=== PATIENT | female | born 1960 | race Caucasian/White ===

== ENCOUNTER 2018-12-04 06:49 | Emergency (ER) | payer OTHER ==
[2018-12-04 07:27] VITALS: TEMP 97.7; BMI 24.7
[2018-12-04] MEDS ORDERED: ONDANSETRON 4 MG/2 ML VIAL ONE ×2 (08:19→08:29)
[2018-12-04 08:20] LABS: BASO % 0.5 % (0-2.0); EOS % 1.1 % (0-4.5); HEMATOCRIT 40.7 % (32.4-45.2); HEMOGLOBIN 13.8 GM/dL (10.7-15.3); LYMPH % 20.7 % (8-40); MCH 33.7 pg (25.7-33.7); MEAN CELL VOLUME 99.2 fl (80-96); MEAN PLT VOLUME 9.6 fl (7.5-11.1); MONO % 7.2 % (3.8-10.2); NEUT % 70.5 % (42.8-82.8); PLATELET COUNT 156 K/MM3 (134-434); RDW 12.6 % (11.6-15.6); WHITE BLOOD COUNT 4.1 K/mm3 (4.0-10.0)
[2018-12-04] MEDS ORDERED: ONDANSETRON 4 MG/2 ML VIAL IVPUSH ONE (08:20)
[2018-12-04 08:21] LABS: INR 0.92 (0.83-1.09); PROTHROMBIN TIME (PATIENT) 10.8 SEC (9.7-13.0)
--- NOTE | 2018-12-04 08:33 | PDOC ---
Documentation entered by Karen Baker SCRIBE, acting as scribe for Gera Dailey MD. Gera Dailey MD: This documentation has been prepared by the scribe, Karen Baker SCRIBE, under my direction and personally reviewed by me in its entirety. I confirm that the documentation accurately reflects all work, treatment, procedures, and medical decision making performed by me. History of Present Illness - General Chief Complaint: CVA/TIA Stated Complaint: DIZZY Time Seen by Provider: 12/04/18 07:26 History Source: Patient Exam Limitations: Language Barrier - History of Present Illness Initial Comments: 12/04/18 09:30 The patient is a 54-year-old female, with a past medical history of DM, GERD, who presents to the ED with dizziness that began this morning. The patient states that she got up from bed and felt dizzy. She was trying to hold on to the surrounding furniture to balance herself. She denies any loss of consciousness or head trauma. She denies room spinning sensation and reports that she feels unsteady on her feet. She also reports numbness in B/L hands, worse on the LT side. The patient denies any fever, chills, nausea, vomiting, diarrhea, constipation or abdominal pain. Denies any chest pain, palpitations, or shortness of breath. Allergies: ciprofloxacin, ciprofloxacin HCl, ranitidine HCl. Surgical History: None reported. Social History: None reported PCP: Dr. Cassius Myers NIH Stroke Scale - Last Known Well Date/Time & Onset Date Last Known Well: 12/04/18 Time Last Known Well: 06:00 - Initial Evaluation Level of consciousness: Alert Ask patient the month and their age: Answers both correctly Ask patient to open & close eyes; make fist and let go: Obeys both correctly Best gaze (horizontal eye movement): Normal Visual field testing: No visual field loss Facial paresis (Show teeth/raise eyebrows/close eyes tight): Normal symmetrical movement Motor Function: Left Arm: Normal Motor Function: Right Arm: Normal (extends arm 90 (or 45) degrees for 10 seconds without drift Motor Function: Left Leg: Normal (extends leg 30 degrees for 5 seconds without drift) Motor Function: Right Leg: Normal (extends leg 30 degrees for 5 seconds without drift) Limb Ataxia: Present in one limb Sensory(Use pinprick test arms,legs,trunk,face/side to side): Normal Best language (Describe picture, name items, read sentences): No Aphasia Dysarthria (read several words): Normal articulation Extinction and Inattention: No abnormality - Total Score NIH Stroke Scale Score: 1 Past History - Past Medical History Allergies/Adverse Reactions: Allergies Allergy/AdvReac Type Severity Reaction Status Date / Time ciprofloxacin [From Cipro] Allergy Rash Verified 12/04/18 07:21 ciprofloxacin HCl Allergy Rash Verified 12/04/18 07:21 [From Cipro] ranitidine HCl [From Zantac] Allergy Rash Verified 12/04/18 07:21 Home Medications: Ambulatory Orders Calcium Carbonate/Vitamin D3 [Calcium 500 + D Tablet] 1 tab PO DAILY 11/10/13 Omeprazole [Prilosec] 20 mg PO DAILY 09/18/14 Acetaminophen W/ Codeine #3 [Tylenol # 3 -] 1 tab PO Q6H #20 tablet 10/12/14 COPD: No Diabetes: Yes (gestational) GI Disorders: Yes (reflux) - Immunization History Immunization Up to Date: Yes - Suicide/Smoking/Psychosocial Hx Smoking History: Never smoked Have you smoked in the past 12 months: No Information on smoking cessation initiated: No Hx Alcohol Use: No Drug/Substance Use Hx: No Substance Use Type: Alcohol Review of Systems - Review of Systems Comments:: 12/04/18 09:02 REVIEW OF SYSTEMS CONSTITUTIONAL: No fever, no chills, no fatigue EYES: No visual changes ENT: No ear pain, no sore throat CARDIOVASCULAR: No chest pain, no palpitations RESPIRATORY: No cough, no SOB GI: No abdominal pain, + nausea, + vomiting, no constipation, no diarrhea GENITOURINARY: No dysuria, no frequency, no hematuria MUSKULOSKELETAL: No backpain, no joint pain, no myalgias SKIN: No rash NEURO: No headache; + dizziness; + b/l parasthesias *Physical Exam - Vital Signs Last Vital Signs Temp Pulse Resp BP Pulse Ox 97.7 F 94 H 16 127/72 98 12/04/18 07:22 12/04/18 07:22 12/04/18 07:22 12/04/18 07:22 12/04/18 07:22 - Physical Exam Comments: 12/04/18 08:31 EXAMINATION CONSTITUTIONAL: Aox3, Well-appearing; well-nourished; in no apparent distress HEAD: Normocephalic; atraumatic EYES: PERRL; EOM intact, no nystagmus ENMT: External appears normal; normal oropharynx NECK: Supple; non-tender; no bruits CARD: Normal S1, S2; no murmurs, rubs, or gallops RESP: Normal chest excursion with respiration; breath sounds clear and equal bilaterally; no wheezes, rhonchi, or rales ABD: Soft, non-distended; non-tender; no palpable organomegaly, no palpable hernias EXT: Normal ROM in all four extremities; non-tender to palpation; distal pulses intact SKIN: Warm, dry, no rash NEURO: Cranial nerves II through XII are grossly intact; motor is 5 of 54; no pronation drift; finger to nose is normal bilaterally; + dysmetria on the left; gait- stable; [id number] is normal bilaterally ED Treatment Course - LABORATORY CBC & Chemistry Diagram: 12/04/18 07:39 12/04/18 07:39 - ADDITIONAL ORDERS Additional order review: Laboratory Results 12/04/18 07:39 PT with INR 10.80 INR 0.92 - RADIOLOGY Radiology Studies Ordered: Category Date Time Status HEAD CT WITHOUT CONTRAST [CT] Stat CT Scan 12/04/18 08:19 Ordered - Medications Given in the ED: ED Medications Discontinued Medications Generic Name Dose Route Start Last Admin Trade Name Freq PRN Reason Stop Dose Admin Ondansetron HCl 4 mg 12/04/18 08:20 12/04/18 08:26 Zofran Injection IVPUSH 12/04/18 08:21 4 mg ONCE ONE Administration Medical Decision Making - Medical Decision Making 12/04/18 09:02 Patient is a 58-year-old female with no previous medical history who presents to the ER with dizziness/vertigo that started approximately 6 AM on the day of arrival, associated with unsteady gait, and bilateral hand and arm paresthesias (left greater than right) several episodes of nonbloody nonbilious vomiting and intermittent nausea exacerbated by changes in position. During the ER evaluation , patient's paresthesias had resolved, but she continued to endorse intermittent nausea and sensation of imbalance when ambulating. Neurological evaluation revealed mild dysmetria on the left only. Cranial nerves were noted to be intact. No dysesthesia was identified. Patient was able to ambulate without difficulty. CT of head shows no evidence of acute intracranial pathology. Patient is not a TPA candidate giving the mild nature of her symptoms at this time. Will obtain MRI with diffuse weighted images. We'll consult neurology. 12/04/18 13:04 Patient's MRI reveals no evidence of acute intracranial pathology. On reassessment, the patient's symptoms have resolved. I discussed the case with Dr. Vergara of neurology. Posterior circulation TIA is possible. At this time, we'll administer aspirin and meclizine and will discharge with outpatient follow -up. *DC/Admit/Observation/Transfer Diagnosis at time of Disposition: Dizziness - Discharge Dispostion Disposition: HOME Condition at time of disposition: Stable - Referrals Referrals: Cassius Myers MD [Primary Care Provider] - Leigh Shen MD [Staff Physician] - - Patient Instructions Printed Discharge Instructions: DI for Dizziness-Nonvertigo Additional Instructions: Take aspirin-81 mg daily until instructed to stop. Take meclizine-25 mg as needed for dizziness. Return immediately for worsening symptoms, weakness, difficulty ambulating. - Post Discharge Activity
[2018-12-04 08:39] LABS: ALBUMIN 3.8 g/dl (3.4-5.0); ALK PHOS 50 U/L (45-117); ANION GAP 6 MMOL/L (8-16); BILIRUBIN,TOTAL 0.4 mg/dL (0.2-1); BLOOD UREA NITROGEN 24.4 mg/dL (7-18); CHLORIDE 107 mmol/L (98-107); CO2 27 mmol/L (21-32); CREATININE 0.7 mg/dL (0.55-1.3); GLUCOSE,RANDOM 116 mg/dL (74-106); POTASSIUM 4.3 mmol/L (3.5-5.1); SGOT/AST 24 U/L (15-37); SGPT/ALT 28 U/L (13-61); SODIUM 141 mmol/L (136-145); TOT PROT 7.1 g/dl (6.4-8.2)
[2018-12-04] MEDS ORDERED: SODIUM CHLORIDE 500 ML IV STA (09:31)
[2018-12-04 10:30] VITALS: BP 111/61; PULSE 69
--- NOTE | 2018-12-04 12:25 | EKG ---
Test Reason : Blood Pressure : / mmHG Vent. Rate : 073 BPM Atrial Rate : 073 BPM P-R Int : 140 ms QRS Dur : 078 ms QT Int : 392 ms P-R-T Axes : 037 061 061 degrees QTc Int : 431 ms NORMAL SINUS RHYTHM NORMAL ECG NO PREVIOUS ECGS AVAILABLE Confirmed by BRIE MARCUS, CATALINO ([id number]) on 12/04/2018 12:25:43 PM Referred By: Confirmed By:CATALINO BAIRD MD
[2018-12-04] MEDS ORDERED: MECLIZINE HCL 25 MG TABLET (FP) PO ONE (13:05)
[2018-12-04] MEDS ORDERED: ASPIRIN 325 MG ENTERIC COATED TABLET (FP) PO ONE (13:05)
[2018-12-04] MEDS ORDERED: ASPIRIN 325 MG ENTERIC COATED TABLET (FP) ONE (14:03)
[2018-12-04] MEDS ORDERED: MECLIZINE HCL 25 MG TABLET (FP) ONE (14:03)
== END 2018-12-04 14:13 | disposition home or self-care (01) ==
LOC: JER 06:49
PROC: 3E033GC Introduction of Other Therapeutic Substance into Peripheral Vein, Percutaneous Approach (ICD-10-PCS; principal; 2018-12-04)
PROC: 3E0337Z Introduction of Electrolytic and Water Balance Substance into Peripheral Vein, Percutaneous Approach (ICD-10-PCS; 2018-12-04)
DX: R42 Dizziness and giddiness (principal); E11.9 Type 2 diabetes mellitus without complications; K21.9 Gastro-esophageal reflux disease without esophagitis
CPT/HCPCS: 36415; 70450-TC; 70551-TC; 80053; 82550; 84484; 85025; 85610; 93005; 93010; 99285-25

== ENCOUNTER → 2021-03-14 | Day surgery (SDC) | payer OTHER | END | disposition home or self-care (01) | LOC: FRADUS-SUR 09:32 → FRADUS 09:32 → EDSTATUS 10:00 | PROVIDERS: ATTEND Surgery | PROC: 0HBU3ZX Excision of Left Breast, Percutaneous Approach, Diagnostic (ICD-10-PCS; principal; 2021-03-14) | DX: N64.89 Other specified disorders of breast (principal); R92.8 Other abnormal and inconclusive findings on diagnostic imaging of breast | CPT/HCPCS: 19081; 76098-TC-FY; 87899; 88305-TC; A4648 ==

== ENCOUNTER 2023-10-20 15:06 | Emergency (ER) | payer OTHER ==
[2023-10-20 15:17] VITALS: BP 132/66; PULSE 89; RESP 18; TEMP 98; BMI 25.6
[2023-10-20] MEDS ORDERED: KETOROLAC TROMETHAMINE 30 MG/1 ML VIAL ONE (15:49)
[2023-10-20] MEDS: KETOROLAC TROMETHAMINE 30 MG/1 ML VIAL IM ONE (15:56)
== END 2023-10-20 16:03 | disposition home or self-care (01) ==
LOC: JERFT 15:06
DX: M54.42 Lumbago with sciatica, left side (principal); X50.1XXA Overexertion from prolonged static or awkward postures, initial encounter
CPT/HCPCS: 99284-25